=== PATIENT | male | born 1980 | race Caucasian/White ===

== ENCOUNTER 2022-08-12 13:10 | Emergency (ER) | payer OTHER ==
[~2022-08-12] VITALS: Ht 182.9 cm; Wt 104.0 kg
[2022-08-12] VITALS (8 sets, daily range): BP systolic 113–133; BP diastolic 73–87
[2022-08-12] MEDS ORDERED: IBUPROFEN600 MG PO (15:33)
== END 2022-08-12 16:03 | disposition home or self-care (01) | DRG 552 ==
LOC: ED 13:10
DX: M54.50 Low back pain, unspecified (principal); F17.210 Nicotine dependence, cigarettes, uncomplicated